=== PATIENT | female | born 1950 | race Caucasian/White ===

== ENCOUNTER 2017-03-04 23:25 | Emergency (ER) | payer OTHER ==
[~2017-03-04] VITALS: Ht 160 cm; Wt 100.0 kg
[~2017-03-04 23:25] MED LIST: ASPIRIN; BENAZEPRIL; DOCU250C14; GABA-531; INSLAN; LEVOTHYROXINE; METFORMIN; ONDA4TAB51; TRIAMTERENE
[2017-03-05] MEDS ORDERED: ALBUTEROL (0.083%) 2.5MG/3ML NEB HHN STA (00:46)
[2017-03-05 04:19] VITALS: BP 145/65
== END 2017-03-05 04:20 | disposition home or self-care (01) ==
LOC: ER 23:25
DX: T65.891A Toxic effect of other specified substances, accidental (unintentional), initial encounter (principal); J96.00 Acute respiratory failure, unspecified whether with hypoxia or hypercapnia; E11.9 Type 2 diabetes mellitus without complications; E78.00 Pure hypercholesterolemia, unspecified; I10 Essential (primary) hypertension; Z79.4 Long term (current) use of insulin; J45.909 Unspecified asthma, uncomplicated; Y92.018 Other place in single-family (private) house as the place of occurrence of the external cause
CPT/HCPCS: 71010; 99283; J7611

== ENCOUNTER 2017-03-23 01:31 | Emergency (ER) | payer OTHER ==
[~2017-03-23] VITALS: Ht 160 cm; Wt 100.0 kg
[2017-03-23] MEDS ORDERED: ACETAMINOPHEN 325MG TABLET PO ONE (08:30)
[2017-03-23 11:09] VITALS: BP 117/57
== END 2017-03-23 11:12 | disposition home or self-care (01) ==
LOC: ER 01:32
DX: M25.511 Pain in right shoulder (principal); M85.811 Other specified disorders of bone density and structure, right shoulder; J45.909 Unspecified asthma, uncomplicated; E78.00 Pure hypercholesterolemia, unspecified; I10 Essential (primary) hypertension; E11.9 Type 2 diabetes mellitus without complications; Z79.4 Long term (current) use of insulin; Z90.710 Acquired absence of both cervix and uterus; W01.0XXA Fall on same level from slipping, tripping and stumbling without subsequent striking against object, initial encounter; Y93.89 Activity, other specified; Y92.018 Other place in single-family (private) house as the place of occurrence of the external cause
CPT/HCPCS: 73030; 99284; A4565

== ENCOUNTER 2017-04-25 03:47 | Emergency (ER) | payer OTHER ==
[~2017-04-25] VITALS: Ht 160 cm; Wt 100.0 kg
[2017-04-25] MEDS ORDERED: IPRATROPIUM BROMIDE (0.02%) 0.5MG/2.5ML NEB HHN STA (04:46)
[2017-04-25] MEDS ORDERED: ALBUTEROL (0.083%) 2.5MG/3ML NEB HHN STA (04:46)
[2017-04-25] MEDS ORDERED: METHYLPREDNISOLONE SOD SUCC 125 MG/2 ML VIAL IV STA (04:46)
[2017-04-25] MEDS ORDERED: MAGNESIUM 2 G PREMIX 50 ML IV STA (04:46)
[2017-04-25 05:04] LABS: BASOPHILS % 0.7 % (0.0-2.0); EOSINOPHILS % 2.4 % (0.0-5.0); MEAN CORPUSCULAR HEMOGLOBIN 28.7 pg (28.0-32.0); MEAN CORPUSCULAR VOLUME 86.2 fL (81.0-99.0); MEAN PLATELET VOLUME 8.1 fl (7.4-10.4); MONOCYTES % 10.2 % (2.0-8.0); NEUTROPHILS % 60.7 % (40.0-76.0); PLATELET 315 x1000/uL (130-400); RED BLOOD CELL COUNT 4.88 mill/uL (4.2-5.4); RED CELL DISTRIBUTION WIDTH 13.3 % (11.6-14.6)
[2017-04-25 05:13] LABS: CARBON DIOXIDE 28 mEq/L (21-32); CHLORIDE 103 mEq/L (98-107)
[2017-04-25 08:26] VITALS: BP 114/56
== END 2017-04-25 08:33 | disposition home or self-care (01) ==
LOC: ER 07:39
DX: J45.909 Unspecified asthma, uncomplicated (principal); E11.9 Type 2 diabetes mellitus without complications; I10 Essential (primary) hypertension; E03.9 Hypothyroidism, unspecified; Z79.4 Long term (current) use of insulin
CPT/HCPCS: 36415; 71010; 80048; 85025; 93005; 94644; 96365; 96366; 96375; 99285; J2930; J3475; J7611; 94640; 96361; 96374

== ENCOUNTER 2017-05-16 22:34 | Emergency (ER) | payer OTHER ==
[~2017-05-16] VITALS: Ht 152.4 cm; Wt 100.0 kg
[2017-05-17 07:03] LABS: BASOPHILS % 0.6 % (0.0-2.0); EOSINOPHILS % 4.2 % (0.0-5.0); HEMATOCRIT. 44.9 % (36.0-48.0); HEMOGLOBIN. 14.9 g/dL (12.0-16.0); LYMPHOCYTES % 30.5 % (20.0-50.0); MEAN CORPUSCULAR HEMOGLOBIN 28.9 pg (28.0-32.0); MEAN CORPUSCULAR VOLUME 87.3 fL (81.0-99.0); MEAN PLATELET VOLUME 8.8 fl (7.4-10.4); MONOCYTES % 10.5 % (2.0-8.0); NEUTROPHILS % 54.2 % (40.0-76.0); PLATELET 280 x1000/uL (130-400); RED BLOOD CELL COUNT 5.14 mill/uL (4.2-5.4); RED CELL DISTRIBUTION WIDTH 13.8 % (11.6-14.6)
[2017-05-17 07:09] LABS: PARTIAL THROMBOPLASTIN TIME 26.8 sec (23.4-31.0); PROTHROMBIN TIME 10.3 sec (9.4-11.6)
[2017-05-17 07:18] LABS: CARBON DIOXIDE 30 mEq/L (21-32); CHLORIDE 109 mEq/L (98-107); TROPONIN I < 0.02 ng/mL (0.00-0.04)
[2017-05-17 10:40] VITALS: BP 143/73
== END 2017-05-17 10:45 | disposition home or self-care (01) ==
LOC: ER 22:34
DX: J44.9 Chronic obstructive pulmonary disease, unspecified (principal); R60.0 Localized edema; R06.01 Orthopnea; I51.7 Cardiomegaly; Z79.84 Long term (current) use of oral hypoglycemic drugs; Z79.4 Long term (current) use of insulin
CPT/HCPCS: 36415; 71010; 80053; 83690; 83880; 84484; 85025; 85610; 85730; 93005; 99285

== ENCOUNTER 2017-06-24 17:56 | Emergency (ER) | payer OTHER ==
[~2017-06-24] VITALS: Ht 154.9 cm; Wt 108.0 kg
[2017-06-24] MEDS ORDERED: ALBUTEROL (0.083%) 2.5MG/3ML NEB HHN STA (20:12)
[2017-06-24] MEDS ORDERED: IPRATROPIUM BROMIDE (0.02%) 0.5MG/2.5ML NEB HHN STA (20:12)
[2017-06-24] MEDS ORDERED: ALBUTEROL (0.5%) 2.5MG/0.5ML NEB HHN ONE (20:29)
[2017-06-24] MEDS ORDERED: IPRATROPIUM/ALBUTEROL 0.5-3(2.5)MG/3ML NEB ONE (20:29)
[2017-06-24 20:34] LABS: BASOPHILS % 0.5 % (0.0-2.0); HEMATOCRIT. 47.2 % (36.0-48.0); HEMOGLOBIN. 15.7 g/dL (12.0-16.0); LYMPHOCYTES % 28.2 % (20.0-50.0); MEAN CORPUSCULAR VOLUME 87.1 fL (81.0-99.0); MEAN PLATELET VOLUME 7.8 fl (7.4-10.4); MONOCYTES % 14.1 % (2.0-8.0); NEUTROPHILS % 56.2 % (40.0-76.0); PLATELET 289 x1000/uL (130-400); RED BLOOD CELL COUNT 5.42 mill/uL (4.2-5.4); RED CELL DISTRIBUTION WIDTH 13.8 % (11.6-14.6)
[2017-06-24 20:35] LABS: CHLORIDE 103 mEq/L (98-107)
[2017-06-24 20:37] LABS: INR 1.1; PROTHROMBIN TIME 11.2 sec (9.4-11.6)
[2017-06-24 20:41] LABS: CARBON DIOXIDE 27 mEq/L (21-32)
[2017-06-24 22:07] VITALS: BP 122/72
== END 2017-06-24 22:07 | disposition home or self-care (01) ==
LOC: ER 20:13
DX: J45.901 Unspecified asthma with (acute) exacerbation (principal); E11.9 Type 2 diabetes mellitus without complications; I10 Essential (primary) hypertension; G43.909 Migraine, unspecified, not intractable, without status migrainosus; Z79.4 Long term (current) use of insulin; Z79.82 Long term (current) use of aspirin; Z90.710 Acquired absence of both cervix and uterus
CPT/HCPCS: 36415; 71010; 80053; 83880; 85025; 85610; 93005; 99285; J7611; J7620

== ENCOUNTER 2017-09-06 12:21 | Emergency (ER) | payer OTHER ==
[~2017-09-06] VITALS: Ht 160 cm; Wt 100.0 kg
[2017-09-06] MEDS ORDERED: ALBUTEROL (0.5%) 2.5MG/0.5ML NEB HHN ONE (13:45)
[2017-09-06 14:00] LABS: BASOPHILS % 0.9 % (0.0-2.0); EOSINOPHILS % 7.6 % (0.0-5.0); HEMATOCRIT. 43.4 % (36.0-48.0); HEMOGLOBIN. 14.9 g/dL (12.0-16.0); LYMPHOCYTES % 24.6 % (20.0-50.0); MEAN CORPUSCULAR HEMOGLOBIN 29.7 pg (28.0-32.0); MEAN CORPUSCULAR VOLUME 86.2 fL (81.0-99.0); MEAN PLATELET VOLUME 8.3 fl (7.4-10.4); NEUTROPHILS % 58.9 % (40.0-76.0); PLATELET 301 x1000/uL (130-400); RED BLOOD CELL COUNT 5.03 mill/uL (4.2-5.4); RED CELL DISTRIBUTION WIDTH 13.4 % (11.6-14.6)
[2017-09-06 14:06] LABS: PROTHROMBIN TIME 10.4 sec (9.4-11.6)
[2017-09-06] MEDS ORDERED: ALBUTEROL (0.083%) 2.5MG/3ML NEB ONE (14:06)
[2017-09-06 14:11] LABS: CARBON DIOXIDE 28 mEq/L (21-32); CHLORIDE 104 mEq/L (98-107)
[2017-09-06 14:14] LABS: TROPONIN I < 0.02 ng/mL (0.00-0.04)
[2017-09-06 17:32] VITALS: BP 92/57
== END 2017-09-06 17:35 | disposition home or self-care (01) ==
LOC: ER 13:32
DX: J45.901 Unspecified asthma with (acute) exacerbation (principal); J44.9 Chronic obstructive pulmonary disease, unspecified; R10.9 Unspecified abdominal pain; I10 Essential (primary) hypertension; E11.9 Type 2 diabetes mellitus without complications; G43.909 Migraine, unspecified, not intractable, without status migrainosus; Z79.4 Long term (current) use of insulin; Z79.82 Long term (current) use of aspirin; Z90.710 Acquired absence of both cervix and uterus
CPT/HCPCS: 36415; 71010; 80053; 83880; 84484; 85025; 85610; 93005; 94640; 99285; J7611

== ENCOUNTER 2018-07-12 23:18 | Emergency (ER) | payer OTHER ==
[~2018-07-12] VITALS: Ht 157.5 cm; Wt 100.0 kg
[~2018-07-12 23:18] MED LIST changes: -ASPIRIN; +BENA20TA10 PO; -BENAZEPRIL; +BENZ100C86 PO; +CLAR10 PO; +DOCU-138 PO; +FURO40TA5 PO; +GLIP5TAB12 PO; +GUAI600T44 PO; +LEVO500T2 PO; -LEVOTHYROXINE; +MECL12.584 PO; -METFORMIN; +MONT10TA21 PO; +SIMV20TA6 PO; +TRIA1TAB94 PO; -TRIAMTERENE
[2018-07-13] MEDS ORDERED: IBUPROFEN 800MG TABLET PO ONE (01:30)
[2018-07-13 04:34] VITALS: BP 124/68
== END 2018-07-13 04:44 | disposition home or self-care (01) ==
LOC: ER 23:18
DX: M54.5 Low back pain (principal); W01.0XXA Fall on same level from slipping, tripping and stumbling without subsequent striking against object, initial encounter; Y93.89 Activity, other specified; Y92.89 Other specified places as the place of occurrence of the external cause
CPT/HCPCS: 72100; 99284

== ENCOUNTER 2018-08-15 05:32 | Emergency (ER) | payer OTHER ==
[~2018-08-15] VITALS: Ht 157.5 cm; Wt 100.0 kg
[~2018-08-15 05:32] MED LIST changes: -INSLAN; +INSLAN SUBCUT
[2018-08-15 07:33] LABS: BASOPHILS % 0.3 % (0.0-2.0); CHLORIDE 105 mEq/L (98-107); EOSINOPHILS % 4.1 % (0.0-5.0); HEMATOCRIT. 43.4 % (36.0-48.0); HEMOGLOBIN. 14.4 g/dL (12.0-16.0); LYMPHOCYTES % 8.4 % (20.0-50.0); MEAN CORPUSCULAR HEMOGLOBIN 28.9 pg (28.0-32.0); MEAN CORPUSCULAR VOLUME 87.1 fL (81.0-99.0); MEAN PLATELET VOLUME 7.8 fl (7.4-10.4); MONOCYTES % 6.9 % (2.0-8.0); NEUTROPHILS % 80.3 % (40.0-76.0); PLATELET 287 x1000/uL (130-400); RED BLOOD CELL COUNT 4.98 mill/uL (4.2-5.4); RED CELL DISTRIBUTION WIDTH 13.8 % (11.6-14.6)
[2018-08-15 07:36] LABS: PROTHROMBIN TIME 9.7 sec (9.1-11.1)
[2018-08-15 08:53] LABS: KETONES URINE NEGATIVE (NEGATIVE); LEUKOCYTE ESTERASE URINE 3+ (NEGATIVE); NITRITE URINE NEGATIVE (NEGATIVE); OCCULT BLOOD URINE 3+ (NEGATIVE); PH URINE 6.5 (4.5-8.0); PROTEIN URINE 3+ (NEGATIVE); SPECIFIC GRAVITY URINE 1.022 (1.005-1.030)
[2018-08-15 08:56] LABS: CLARITY URINE TURBID (CLEAR); COLOR URINE BLOODY (YELLOW)
[2018-08-15] MEDS ORDERED: CEFTRIAXONE 1 G PREMIX 50 ML IV ONE (09:45)
[2018-08-15 11:00] VITALS: BP 134/72
== END 2018-08-15 11:05 | disposition home or self-care (01) ==
LOC: ER 05:32
DX: N39.0 Urinary tract infection, site not specified (principal); E11.65 Type 2 diabetes mellitus with hyperglycemia; I10 Essential (primary) hypertension; J44.9 Chronic obstructive pulmonary disease, unspecified; J45.909 Unspecified asthma, uncomplicated; G43.909 Migraine, unspecified, not intractable, without status migrainosus; D72.829 Elevated white blood cell count, unspecified; Z90.710 Acquired absence of both cervix and uterus; Z79.4 Long term (current) use of insulin
CPT/HCPCS: 36415; 76770; 80053; 81003; 85025; 85610; 86850; 86900; 86901; 87077; 87086; 87186; 96365; 99284; J0696

== ENCOUNTER 2018-08-17 20:49 | Inpatient (IN) | payer OTHER, MEDICAID ==
[~2018-08-17] VITALS: Ht 160 cm; Wt 105.7 kg
[2018-08-17] MEDS ORDERED: ONDANSETRON HCL 4MG/2ML INJ IV STA (23:35)
[2018-08-17] MEDS ORDERED: SODIUM CHLORIDE 0.9% 1,000 ML IV ONE (23:35)
[2018-08-17] MEDS ORDERED: ACETAMINOPHEN 325MG TABLET PO STA (23:35)
[2018-08-17] MEDS ORDERED: CEFTRIAXONE 1 G PREMIX 50 ML IV ONE (23:45)
[2018-08-18 00:30] LABS: BASOPHILS % 0.9 % (0.0-2.0); CHLORIDE 106 mEq/L (98-107); EOSINOPHILS % 5.7 % (0.0-5.0); HEMATOCRIT. 43.6 % (36.0-48.0); HEMOGLOBIN. 14.7 g/dL (12.0-16.0); LYMPHOCYTES % 27.6 % (20.0-50.0); MEAN CORPUSCULAR HEMOGLOBIN 29.3 pg (28.0-32.0); MEAN CORPUSCULAR VOLUME 86.8 fL (81.0-99.0); MEAN PLATELET VOLUME 8.2 fl (7.4-10.4); MONOCYTES % 9.9 % (2.0-8.0); NEUTROPHILS % 55.9 % (40.0-76.0); PLATELET 309 x1000/uL (130-400); RED BLOOD CELL COUNT 5.02 mill/uL (4.2-5.4); RED CELL DISTRIBUTION WIDTH 13.5 % (11.6-14.6)
[2018-08-18 01:04] LABS: CLARITY URINE CLEAR (CLEAR); COLOR URINE YELLOW (YELLOW); KETONES URINE NEGATIVE (NEGATIVE); LEUKOCYTE ESTERASE URINE NEGATIVE (NEGATIVE); NITRITE URINE NEGATIVE (NEGATIVE); OCCULT BLOOD URINE NEGATIVE (NEGATIVE); PH URINE >=9.0 (4.5-8.0); PROTEIN URINE TRACE (NEGATIVE); SPECIFIC GRAVITY URINE 1.015 (1.005-1.030); UROBILINOGEN URINE 0.2 E.U./dL (0.2-1.0)
[2018-08-18 04:00] VITALS: BP_SYST 132; BP_DIAS 72; BP_DIAS 74
[2018-08-18] MEDS ORDERED: ATOR40TA70 MT (05:24)
[2018-08-18] MEDS ORDERED: CYAN250010 MT (05:24)
[2018-08-18] MEDS ORDERED: LEVO125T8 MT (05:24)
[2018-08-18] MEDS ORDERED: ALBU18HF2 INH (05:24)
[2018-08-18] MEDS ORDERED: AMLO10TA80 MT (05:24)
[2018-08-18] MEDS ORDERED: OMEP20CA10 MT (05:24)
[2018-08-18] MEDS ORDERED: VITA80008 PO (05:24)
[2018-08-18 08:00] VITALS: BP 153/77
[2018-08-18] MEDS ORDERED: DEXTROSE 50% WATER 50ML SYRINGE IV PRN (10:00)
[2018-08-18] MEDS ORDERED: BLOOD SUGAR DIAGNOSTIC STRIP TEST SCH (11:45)
[2018-08-18 12:00] VITALS: BP 131/72
[2018-08-18] MEDS ORDERED: INSULIN LISPRO 100 UNITS/ML SUBCUT SCH (12:15)
[2018-08-18 15:04] VITALS: BP 131/72
[2018-08-18 16:00] VITALS: BP 137/67
[2018-08-18] MEDS ORDERED: CEFTRIAXONE 1 G PREMIX 50 ML IV SCH (21:00)
== END 2018-08-18 16:20 | disposition home or self-care (01) | DRG 690 ==
LOC: ER 20:49 → 5WST 08-18 02:12 → EDBEDREQ 08-18 02:16 → EDBEDREQDT 08-18 02:16 → EDBEDREQSVC 08-18 02:16 → EDBEDREQTM 08-18 02:16 → ENRESERV 08-18 02:34 → 5WST 08-18 03:52
PROVIDERS: ADMIT Internal Medicine; ATTEND Internal Medicine
DX: N39.0 Urinary tract infection, site not specified (principal); G93.40 Encephalopathy, unspecified; E78.00 Pure hypercholesterolemia, unspecified; E11.9 Type 2 diabetes mellitus without complications; E03.9 Hypothyroidism, unspecified; E78.5 Hyperlipidemia, unspecified; F41.1 Generalized anxiety disorder; I10 Essential (primary) hypertension; J45.909 Unspecified asthma, uncomplicated; Z90.710 Acquired absence of both cervix and uterus; Z79.899 Other long term (current) drug therapy
CPT/HCPCS: 36415; 71045; 82962; 83605; 84145; 84484; 93005; 96365; 96375; 99285; J0696; J1815; J2405; J7030

== ENCOUNTER 2022-03-03 01:34 | Emergency (ER) | payer MEDICARE, MEDICAID ==
[~2022-03-03] VITALS: Ht 160 cm; Wt 100.0 kg
[~2022-03-03 01:34] MED LIST changes: +ALBU18HF2 INH; +AMLO10TA80 MT; +ATOR40TA70 MT; -BENA20TA10 PO; +CYAN250010 MT; -DOCU250C14; -GABA-531; +LEVO125T8 MT; +MECL-217 PO; -MECL12.584 PO; +OMEP20CA14 MT; +SIMV-43 PO; -SIMV20TA6 PO; +VITA80008 PO
[2022-03-03 06:20] LABS: BASOPHILS % 0.7 % (0.0-2.0); HEMATOCRIT. 44.8 % (36.0-48.0); HEMOGLOBIN. 14.8 g/dL (12.0-16.0); LYMPHOCYTES % 28.4 % (20.0-50.0); MEAN CORPUSCULAR HEMOGLOBIN 29.3 pg (28.0-32.0); MEAN CORPUSCULAR VOLUME 88.4 fL (81.0-99.0); MEAN PLATELET VOLUME 9.1 fl (7.4-10.4); MONOCYTES % 9.2 % (2.0-8.0); NEUTROPHILS % 56.7 % (40.0-76.0); PLATELET 315 x1000/uL (130-400); RED BLOOD CELL COUNT 5.07 mill/uL (4.2-5.4); RED CELL DISTRIBUTION WIDTH 13.4 % (11.6-14.6)
[2022-03-03 06:46] LABS: CHLORIDE 104 mEq/L (98-107)
[2022-03-03 07:30] VITALS: BP 125/60
[2022-03-03] MEDS ORDERED: MAGNESIUM CITRATE 300ML SOLUTION PO ONE (07:30)
[2022-03-03] MEDS ORDERED: DOCU-138 MT (07:36)
== END 2022-03-03 07:45 | disposition home or self-care (01) ==
LOC: ER 01:34
DX: R42 Dizziness and giddiness (principal); K59.00 Constipation, unspecified; J45.909 Unspecified asthma, uncomplicated; E11.9 Type 2 diabetes mellitus without complications; E78.00 Pure hypercholesterolemia, unspecified; I10 Essential (primary) hypertension; Z90.710 Acquired absence of both cervix and uterus; Z79.899 Other long term (current) drug therapy
CPT/HCPCS: 36415; 71045; 80053; 85025; 93005; 99285

== ENCOUNTER 2022-10-21 11:58 | Emergency (ER) | payer MEDICARE, MEDICAID ==
[~2022-10-21] VITALS: Ht 160 cm; Wt 100.0 kg
[~2022-10-21 11:58] MED LIST changes: +DOCU-138 MT
[2022-10-21 12:31] VITALS: BP 187/56
[2022-10-21] MEDS ORDERED: SENN-257 MT (15:27)
[2022-10-21] MEDS ORDERED: POLY17PO3 MT (15:27)
[2022-10-21] MEDS ORDERED: NA P133E4 RC (15:27)
== END 2022-10-21 15:51 | disposition home or self-care (01) ==
LOC: ER 11:58
DX: K59.00 Constipation, unspecified (principal); I10 Essential (primary) hypertension; E11.9 Type 2 diabetes mellitus without complications; Z79.899 Other long term (current) drug therapy
CPT/HCPCS: 74018; 99283

== ENCOUNTER 2023-10-30 18:53 | Inpatient (IN) | payer MEDICARE, MEDICAID ==
[~2023-10-30] VITALS: Ht 152.4 cm; Wt 103.0 kg
[~2023-10-30 18:53] MED LIST changes: -ALBU18HF2 INH; +ALBU6.7H15 INH; +ASPI-1406 MT; +BUDE90AE INH; -CLAR10 PO; -CYAN250010 MT; -DOCU-138 MT; -DOCU-138 PO; -GLIP5TAB12 PO; +GLIP5TAB22 PO; -GUAI600T44 PO; -LEVO500T2 PO; +LOSA100T33 MT; -MECL-217 PO; +METF-416 PO; +MONT-46 PO; -MONT10TA21 PO; +NEBI20TA2 MT; -ONDA4TAB51; -SIMV-43 PO; -VITA80008 PO
[2023-10-30] MEDS: PREDNISONE 20MG TABLET PO ONE (20:00)
[2023-10-30 20:11] LABS: CLARITY URINE CLEAR (CLEAR); COLOR URINE RED (YELLOW); GLUCOSE URINE NEGATIVE (NEGATIVE); KETONES URINE NEGATIVE (NEGATIVE); LEUKOCYTE ESTERASE URINE 2+ (NEGATIVE); NITRITE URINE NEGATIVE (NEGATIVE); OCCULT BLOOD URINE 3+ (NEGATIVE); PROTEIN URINE 2+ (NEGATIVE); SPECIFIC GRAVITY URINE 1.004 (1.005-1.030); UROBILINOGEN URINE 0.2 E.U./dL (0.2-1.0)
[2023-10-30 20:21] LABS: BACTERIA URINE TRACE; SQUAMOUS EPITHELIAL CELL URINE RARE /lpf (RARE/1+)
[2023-10-30 21:23] VITALS: PULSE 69; RESP 20; O2SAT 96
[2023-10-30] MEDS: ALBUTEROL (0.083%) 2.5MG/3ML NEB HHN ONE (21:23)
[2023-10-30 21:52] LABS: BASOPHILS % 0.6 % (0.0-2.0); EOSINOPHILS % 3.9 % (0.0-5.0); HEMATOCRIT. 43.7 % (36.0-48.0); HEMOGLOBIN. 14.4 g/dL (12.0-16.0); LYMPHOCYTES % 24.1 % (20.0-50.0); MEAN CORPUSCULAR HEMOGLOBIN 29.5 pg (28.0-32.0); MEAN CORPUSCULAR HGB CONC 32.8 g/dL (31.0-37.0); MEAN CORPUSCULAR VOLUME 89.8 fL (81.0-99.0); MEAN PLATELET VOLUME 8.6 fl (7.4-10.4); MONOCYTES % 7.2 % (2.0-8.0); NEUTROPHILS % 64.2 % (40.0-76.0); PLATELET 312 x1000/uL (130-400); RED BLOOD CELL COUNT 4.87 mill/uL (4.2-5.4); RED CELL DISTRIBUTION WIDTH 13.8 % (11.6-14.6); WHITE BLOOD COUNT 18.1 x1000/uL (4.5-11.0)
[2023-10-30 22:07] LABS: ALANINE AMINOTRANSFERASE 15 IU/L (10-49); ALBUMIN 4.4 g/dL (3.2-4.8); ASPARTATE AMINOTRANSFERASE 18 IU/L (<34); BILIRUBIN TOTAL 0.7 mg/dL (0.1-1.0); CALCIUM 9.9 mg/dL (8.7-10.4); CARBON DIOXIDE 30 mEq/L (21-32); CHLORIDE 107 mEq/L (98-107); CREATININE 0.6 mg/dL (0.6-1.0); POTASSIUM 3.7 mEq/L (3.5-5.1); PROTEIN TOTAL 7.1 g/dL (6.0-8.3); SODIUM 142 mEq/L (136-145); TROPONIN I HIGH SENSITIVITY 4 ng/L (3.0-34); UREA NITROGEN BLOOD 14 mg/dL (9-23)
[2023-10-30 22:13] LABS: GLUCOSE 47 mg/dL (70-105)
[2023-10-31] MEDS: LEVOFLOXACIN 750MG PREMIX 150 ML IV ONE (00:11)
[2023-10-31 00:45] VITALS: PULSE 81; RESP 18; O2SAT 98
[2023-10-31] MEDS: ALBUTEROL (0.083%) 2.5MG/3ML NEB HHN NR (00:45)
[2023-10-31] MEDS ORDERED: LEVOFLOXACIN 750MG PREMIX 150 ML IV SCH (02:30)
[2023-10-31] MEDS ORDERED: IPRATROPIUM/ALBUTEROL 0.5-3(2.5)MG/3ML NEB HHN PRN (02:30)
[2023-10-31] MEDS ORDERED: GUAIFENESIN-DM 200MG-20MG/10ML UDC PO PRN (02:30)
[2023-10-31] MEDS ORDERED: DEXTROSE 50% WATER 50ML SYRINGE IV PRN (02:30)
[2023-10-31 04:00] VITALS: BP 157/62; PULSE 104; PULSE 99; RESP 20; TEMP 98.1
[2023-10-31 04:28] LABS: CALCIUM 9.1 mg/dL (8.7-10.4); CARBON DIOXIDE 25 mEq/L (21-32); CHLORIDE 105 mEq/L (98-107); CREATININE 0.8 mg/dL (0.6-1.0); GLUCOSE 312 mg/dL (70-105); POTASSIUM 4.1 mEq/L (3.5-5.1); SODIUM 139 mEq/L (136-145); UREA NITROGEN BLOOD 17 mg/dL (9-23)
[2023-10-31] MEDS: METHYLPREDNISOLONE SOD SUCC 40MG/ML (ACT-O-VIAL) IV SCH (05:40)
[2023-10-31] MEDS: SODIUM CHLORIDE 0.9% 1,000 ML IV SCH (05:42)
[2023-10-31] MEDS: BLOOD SUGAR DIAGNOSTIC STRIP TEST SCH (07:40)
[2023-10-31 07:44] LABS: CREATINE KINASE MB FRACTION 2.1 ng/mL (0.5-3.6)
[2023-10-31 08:11] VITALS: BP 167/76; PULSE 89; RESP 20; TEMP 97.9
[2023-10-31] MEDS: LEVOTHYROXINE SODIUM 125MCG TABLET PO SCH (08:47)
[2023-10-31] MEDS: AMLODIPINE 2.5MG TABLET PO SCH (08:48)
[2023-10-31] MEDS: LOSARTAN 50 MG TABLET PO SCH (08:48)
[2023-10-31] MEDS: INSULIN LISPRO 100 UNITS/ML SUBCUT SCH (08:49)
[2023-10-31] MEDS: ACETAMINOPHEN 325MG TABLET PO PRN (08:53)
[2023-10-31 11:41] VITALS: BP 140/59; PULSE 85; RESP 22; TEMP 98.4
[2023-10-31] MEDS: IPRATROPIUM/ALBUTEROL 0.5-3(2.5)MG/3ML NEB HHN SCH (14:00)
[2023-10-31 15:49] VITALS: BP 151/61; PULSE 82; RESP 19; TEMP 98
[2023-10-31 17:57] LABS: CREATINE KINASE MB FRACTION 2.8 ng/mL (0.5-3.6)
[2023-10-31 20:37] VITALS: BP 155/61; PULSE 80; RESP 19; TEMP 97.8
[2023-10-31] MEDS ORDERED: LEVOFLOXACIN 500MG PREMIX 100 ML IV SCH (21:00)
[2023-10-31] MEDS: ATORVASTATIN CALCIUM 40MG TABLET PO SCH (22:02)
[2023-10-31] MEDS: FAMOTIDINE 20MG TABLET PO SCH (22:02)
[2023-11-01] VITALS (9 sets, daily range): BP systolic 129–153; BP diastolic 56–73; PULSE 66–91; RESP 18–22; TEMP 97.7–98.2; O2SAT 97–98
[2023-11-01 07:15] LABS: ALANINE AMINOTRANSFERASE 13 IU/L (10-49); ALBUMIN 3.6 g/dL (3.2-4.8); ASPARTATE AMINOTRANSFERASE 14 IU/L (<34); BILIRUBIN TOTAL 0.8 mg/dL (0.1-1.0); CALCIUM 9.4 mg/dL (8.7-10.4); CARBON DIOXIDE 27 mEq/L (21-32); CHLORIDE 105 mEq/L (98-107); CHOLESTEROL 132 mg/dL (<200); CREATININE 0.6 mg/dL (0.6-1.0); GLUCOSE 246 mg/dL (70-105); HDL CHOLESTEROL 56 mg/dL (>65); LDL CHOLESTEROL 59 mg/dL (5-100); PROTEIN TOTAL 5.7 g/dL (6.0-8.3); SODIUM 139 mEq/L (136-145); T4 FREE 1.49 ng/dL (0.89-1.76); THYROID STIMULATING HORMONE 0.24 uIU/mL (0.55-4.78); TRIGLYCERIDE 63 mg/dL (0-150); UREA NITROGEN BLOOD 15 mg/dL (9-23)
[2023-11-01 07:20] LABS: BASOPHILS % 0.1 % (0.0-2.0); HEMATOCRIT. 40.2 % (36.0-48.0); HEMOGLOBIN. 13.1 g/dL (12.0-16.0); LYMPHOCYTES % 13.1 % (20.0-50.0); MEAN CORPUSCULAR HEMOGLOBIN 29.1 pg (28.0-32.0); MEAN CORPUSCULAR HGB CONC 32.7 g/dL (31.0-37.0); MEAN PLATELET VOLUME 8.7 fl (7.4-10.4); MONOCYTES % 7.4 % (2.0-8.0); NEUTROPHILS % 79.4 % (40.0-76.0); PLATELET 271 x1000/uL (130-400); RED BLOOD CELL COUNT 4.51 mill/uL (4.2-5.4); RED CELL DISTRIBUTION WIDTH 13.8 % (11.6-14.6); WHITE BLOOD COUNT 14.4 x1000/uL (4.5-11.0)
[2023-11-01] MEDS: DOCUSATE SODIUM 250MG CAPSULE PO SCH (08:58)
[2023-11-01 13:12] LABS: *AMPHETAMINES SCREEN URINE NEGATIVE (NEGATIVE); *BARBITURATES SCREEN URINE NEGATIVE (NEGATIVE); *BENZODIAZEPINES SCREEN URINE NEGATIVE (NEGATIVE); *COCAINE SCREEN URINE NEGATIVE (NEGATIVE); CANNABINOID URINE SCREEN NEGATIVE (NEGATIVE); ECSTASY MDMA SCREEN URINE NEGATIVE (NEGATIVE); METHADONE URINE SCREEN Neg (NEGATIVE); OPIATES URINE SCREEN NEGATIVE (NEGATIVE); PHENCYCLIDINE URINE SCREEN NEGATIVE (NEGATIVE)
[2023-11-01] MEDS ORDERED: CLONIDINE 0.1MG TABLET PO PRN (13:45)
[2023-11-01] MEDS: INSULIN GLARGINE 100 UNITS/ML SUBCUT SCH (17:58)
[2023-11-02] VITALS (9 sets, daily range): BP systolic 103–164; BP diastolic 49–72; PULSE 57–79; RESP 18–20; TEMP 97.3–98.7; O2SAT 97–98
[2023-11-02] MEDS: LEVOFLOXACIN 750MG PREMIX 150 ML IV SCH (00:40)
[2023-11-02] MEDS: LEVOTHYROXINE SODIUM 125MCG TABLET PO SCH (07:44)
[2023-11-02] MEDS: PREDNISONE 20MG TABLET PO SCH (09:46)
[2023-11-02 10:13] LABS: BASOPHILS % 0.3 % (0.0-2.0); EOSINOPHILS % 0.3 % (0.0-5.0); HEMATOCRIT. 40.9 % (36.0-48.0); HEMOGLOBIN. 13.2 g/dL (12.0-16.0); LYMPHOCYTES % 21.5 % (20.0-50.0); MEAN CORPUSCULAR HEMOGLOBIN 29.4 pg (28.0-32.0); MEAN CORPUSCULAR HGB CONC 32.2 g/dL (31.0-37.0); MEAN CORPUSCULAR VOLUME 91.3 fL (81.0-99.0); MEAN PLATELET VOLUME 8.8 fl (7.4-10.4); MONOCYTES % 9.2 % (2.0-8.0); NEUTROPHILS % 68.7 % (40.0-76.0); PLATELET 293 x1000/uL (130-400); RED BLOOD CELL COUNT 4.49 mill/uL (4.2-5.4); RED CELL DISTRIBUTION WIDTH 14.2 % (11.6-14.6); WHITE BLOOD COUNT 13.2 x1000/uL (4.5-11.0)
[2023-11-02 10:34] LABS: CALCIUM 9.4 mg/dL (8.7-10.4); CARBON DIOXIDE 27 mEq/L (21-32); CHLORIDE 105 mEq/L (98-107); CREATININE 0.6 mg/dL (0.6-1.0); GLUCOSE 277 mg/dL (70-105); POTASSIUM 4.2 mEq/L (3.5-5.1); SODIUM 139 mEq/L (136-145); UREA NITROGEN BLOOD 15 mg/dL (9-23)
[2023-11-02] MEDS ORDERED: SPIRONOLACTONE 25 MG/5 ML ORAL.SUSP PO SCH (12:30)
[2023-11-02] MEDS: CARVEDILOL 3.125 MG TABLET PO SCH (12:59)
[2023-11-02] MEDS: SPIRONOLACTONE 12.5MG TABLET PO SCH (13:47)
[2023-11-02] MEDS: ALBUTEROL (0.083%) 2.5MG/3ML NEB HHN ONE (19:45)
[2023-11-02] MEDS: BENZONATATE 100MG CAPSULE PO PRN (23:41)
[2023-11-03] VITALS (8 sets, daily range): BP systolic 133–152; BP diastolic 56–71; PULSE 65–97; RESP 16–20; TEMP 97.8–98.2; O2SAT 97–98
[2023-11-03 06:21] LABS: BASOPHILS % 0.4 % (0.0-2.0); EOSINOPHILS % 1.8 % (0.0-5.0); HEMATOCRIT. 43.9 % (36.0-48.0); HEMOGLOBIN. 14.6 g/dL (12.0-16.0); LYMPHOCYTES % 30.4 % (20.0-50.0); MEAN CORPUSCULAR HEMOGLOBIN 29.3 pg (28.0-32.0); MEAN CORPUSCULAR HGB CONC 33.2 g/dL (31.0-37.0); MEAN CORPUSCULAR VOLUME 88.5 fL (81.0-99.0); MEAN PLATELET VOLUME 9.2 fl (7.4-10.4); MONOCYTES % 9.9 % (2.0-8.0); NEUTROPHILS % 57.5 % (40.0-76.0); PLATELET 304 x1000/uL (130-400); RED BLOOD CELL COUNT 4.97 mill/uL (4.2-5.4); RED CELL DISTRIBUTION WIDTH 14.1 % (11.6-14.6); WHITE BLOOD COUNT 13.4 x1000/uL (4.5-11.0)
[2023-11-03 06:25] LABS: CALCIUM 9.7 mg/dL (8.7-10.4); CARBON DIOXIDE 31 mEq/L (21-32); CHLORIDE 105 mEq/L (98-107); CREATININE 0.5 mg/dL (0.6-1.0); GLUCOSE 105 mg/dL (70-105); SODIUM 142 mEq/L (136-145); UREA NITROGEN BLOOD 14 mg/dL (9-23)
[2023-11-03] MEDS: FUROSEMIDE 20MG/2ML VIAL IVP NR (12:15)
[2023-11-03] MEDS ORDERED: LEVO125T8 PO (14:47)
[2023-11-03] MEDS ORDERED: P20 PO (14:47)
[2023-11-03] MEDS ORDERED: SPIR25TA6 PO (14:47)
[2023-11-03] MEDS: FUROSEMIDE 20MG TABLET PO NR (17:58)
[2023-11-04] MEDS ORDERED: SPIRONOLACTONE 12.5MG TABLET PO SCH (09:00)
== END 2023-11-03 20:10 | disposition home health service (06) | DRG 871 ==
LOC: ER 18:53 → 7WST 10-31 02:18 → EDBEDREQTM 10-31 02:20 → EDBEDREQDT 10-31 02:20 → EDBEDREQ 10-31 02:20
PROVIDERS: ADMIT Internal Medicine; ATTEND Internal Medicine
DX: A41.9 Sepsis, unspecified organism (principal); I50.43 Acute on chronic combined systolic (congestive) and diastolic (congestive) heart failure; N39.0 Urinary tract infection, site not specified; J45.901 Unspecified asthma with (acute) exacerbation; I11.0 Hypertensive heart disease with heart failure; R31.9 Hematuria, unspecified; E11.649 Type 2 diabetes mellitus with hypoglycemia without coma; I27.20 Pulmonary hypertension, unspecified; E03.9 Hypothyroidism, unspecified; C80.1 Malignant (primary) neoplasm, unspecified; L92.9 Granulomatous disorder of the skin and subcutaneous tissue, unspecified; E78.00 Pure hypercholesterolemia, unspecified; I25.10 Atherosclerotic heart disease of native coronary artery without angina pectoris; Z20.822 Contact with and (suspected) exposure to COVID-19; Z90.710 Acquired absence of both cervix and uterus; Z98.61 Coronary angioplasty status; Z79.899 Other long term (current) drug therapy; Z88.0 Allergy status to penicillin
CPT/HCPCS: 36415; 71045; 74176; 80048; 80053; 80061; 80305; 81003; 82550; 82553; 82962; 83036; 83605; 83880; 84145; 84439; 84443; 84484; 85025; 87426; 93005; 94640; 97162; 99285; J1815; J1956; J2920; J7512

== ENCOUNTER 2023-11-07 18:25 | Emergency (ER) | payer MEDICARE, MEDICAID ==
[~2023-11-07] VITALS: Ht 160 cm; Wt 100.0 kg
[~2023-11-07 18:25] MED LIST changes: -FURO40TA5 PO; -LEVO125T8 MT; +LEVO125T8 PO; +P20 PO; +SPIR25TA6 PO
[2023-11-07 18:39] VITALS: BP 146/53; PULSE 82; RESP 16; TEMP 99.4; O2SAT 98
[2023-11-07] MEDS ORDERED: DEXT30SU17 MT (21:38)
[2023-11-07] MEDS ORDERED: ALBU6.7H15 INH (21:38)
[2023-11-07] MEDS ORDERED: NIRM1TAB PO (21:38)
[2023-11-07] MEDS ORDERED: ALBU90AE INH (21:38)
== END 2023-11-07 22:32 | disposition home or self-care (01) ==
LOC: ER 18:25
DX: R05.9 Cough, unspecified (principal); R53.1 Weakness; J45.909 Unspecified asthma, uncomplicated; K59.00 Constipation, unspecified; E11.9 Type 2 diabetes mellitus without complications; E78.00 Pure hypercholesterolemia, unspecified; I10 Essential (primary) hypertension; Z90.710 Acquired absence of both cervix and uterus; Z79.899 Other long term (current) drug therapy; Z20.822 Contact with and (suspected) exposure to COVID-19
CPT/HCPCS: 87426; 99283

== ENCOUNTER 2024-02-03 14:22 | Emergency (ER) | payer MEDICARE, MEDICAID ==
[~2024-02-03] VITALS: Ht 160 cm; Wt 97.0 kg
[~2024-02-03 14:22] MED LIST changes: +ALBU90AE INH; +DEXT30SU17 MT; -NEBI20TA2 MT; +NEBI20TA4 MT; +NIRM1TAB PO
[2024-02-03 14:41] VITALS: O2SAT 100
[2024-02-03 18:44] LABS: BASOPHILS % 0.8 % (0.0-2.0); EOSINOPHILS % 5.9 % (0.0-5.0); HEMOGLOBIN. 14.7 g/dL (12.0-16.0); LYMPHOCYTES % 23.6 % (20.0-50.0); MEAN CORPUSCULAR HGB CONC 33.4 g/dL (31.0-37.0); MEAN CORPUSCULAR VOLUME 90.1 fL (81.0-99.0); MEAN PLATELET VOLUME 7.9 fl (7.4-10.4); NEUTROPHILS % 62.7 % (40.0-76.0); PLATELET 337 x1000/uL (130-400); RED BLOOD CELL COUNT 4.88 mill/uL (4.2-5.4); RED CELL DISTRIBUTION WIDTH 13.8 % (11.6-14.6); WHITE BLOOD COUNT 11.3 x1000/uL (4.5-11.0)
[2024-02-03 18:46] LABS: CHLORIDE 104 mEq/L (98-107); POTASSIUM 3.9 mEq/L (3.5-5.1); SODIUM 139 mEq/L (136-145)
[2024-02-03 18:47] LABS: CARBON DIOXIDE 31 mEq/L (21-32)
[2024-02-03 18:52] LABS: CREATININE 0.6 mg/dL (0.6-1.0); GLUCOSE 80 mg/dL (70-105); UREA NITROGEN BLOOD 12 mg/dL (9-23)
[2024-02-03 19:41] VITALS: BP 168/76; PULSE 74; RESP 12; TEMP 98
== END 2024-02-03 19:42 | disposition home or self-care (01) ==
LOC: ER 14:22
DX: I10 Essential (primary) hypertension (principal); J45.909 Unspecified asthma, uncomplicated; E11.9 Type 2 diabetes mellitus without complications; E78.00 Pure hypercholesterolemia, unspecified; E03.9 Hypothyroidism, unspecified; Z98.890 Other specified postprocedural states; Z90.710 Acquired absence of both cervix and uterus; Z88.0 Allergy status to penicillin; Z88.8 Allergy status to other drugs, medicaments and biological substances
CPT/HCPCS: 36415; 80048; 85025; 93005; 99284

== ENCOUNTER → 2025-08-10 | Outpatient (CLI) | payer MEDICARE, MEDICAID ==
[~2025-08-10] MED LIST changes: -BUDE90AE INH; +BUDE90AE3 INH
== END | disposition home or self-care (01) ==
LOC: RAD 15:00
PROVIDERS: ATTEND Internal Medicine Critical Care Medicine
DX: R05.1 Acute cough (principal); R05.3 Chronic cough
CPT/HCPCS: 71046